=== PATIENT | female | born 1945 | race Caucasian/White ===

== ENCOUNTER 2017-08-20 10:16 | Emergency (ER) | payer MEDICARE, OTHER ==
[2017-08-20] MEDS ORDERED: DIPH,PERTUS(ACELL)TETVAC-LF 0.5 ML VIAL IM ONE (10:59)
--- NOTE | 2017-08-20 12:27 | CT ---
EXAMINATION TYPE: CT brain adalberto hollis DATE OF EXAM: 08/20/2017 COMPARISON: NONE HISTORY: Fall CT DLP: 1671.[address] of the brain was performed. The ventricles, basal cisterns and sulci overlying the cerebral convexities demonstrate mild enlargem ent. There is no evidence for intracranial hemorrhage or sulcal effacement. There is decreased attenuatio n about the periventricular white matter and deep white matter of both cerebral hemispheres, compatib le with chronic small vessel ischemia. No mass effects are seen. If symptoms persist consider MRI. Osseous calvarium is intact. Left frontal temporal scalp hematoma. IMPRESSION: 1. Age related atrophic and chronic small vessel ischemic change without acute intracranial process seen at this time. CT Cervical Spine: Unenhanced CT of the cervical spine was performed with bone and soft tissue window settings submitted . Coronal and sagittal reconstruction is obtained. There is normal alignment and prevertebral soft tissues. No evidence for acute cervical fracture. S cattered degenerative disc disease and spondylosis. Biapical scarring. IMPRESSION: 1. No evidence for acute fracture or subluxation of the cervical spine.
--- NOTE | 2017-08-20 12:31 | CT ---
EXAMINATION TYPE: CT facial bones wo con DATE OF EXAM: 08/20/2017 COMPARISON: NONE HISTORY: Fall CT DLP: 527.[address] of the facial bones was performed in the axial and coronal planes. Bone and soft tissu e window settings are submitted. Left frontal temporal scalp hematoma. I do not see evidence for displaced facial bone fracture or depressed facial bone fracture. The globes are intact. Paranasal sinuses are well-aerated. Mucosal thickening right maxillary sinus mild in degree. IMPRESSION: 1. No evidence for depressed or displaced facial bone fracture.
--- NOTE | 2017-08-20 13:04 | XR ---
EXAMINATION TYPE: XR hand complete RT DATE OF EXAM: 08/20/2017 CLINICAL HISTORY: pain TECHNIQUE: Frontal, lateral and oblique images of the right hand are obtained. COMPARISON: None. FINDINGS: There is no acute fracture/dislocation evident. Degenerative changes first carpometacarpal joint with subchondral cyst formation. The overlying soft tissue appears unremarkable. IMPRESSION: There is no acute fracture or dislocation ICD 10 NO FRACTURE, INITIAL EVALUATION
--- NOTE | 2017-08-20 13:05 | XR ---
EXAMINATION TYPE: XR knee complete LT DATE OF EXAM: 08/20/2017 CLINICAL HISTORY: pain TECHNIQUE: Three views of the left knee are obtained. COMPARISON: None. FINDINGS: There is no acute fracture/dislocation. Total knee arthroplasty changes identified. The ov erlying soft tissue appears unremarkable. IMPRESSION: There is no acute fracture or dislocation ICD 10 NO FRACTURE, INITIAL EVALUATION
--- NOTE | 2017-08-20 13:14 | ED ---
Fall HPI - General Chief Complaint: Fall Stated Complaint: Fall Time Seen by Provider: 08/20/17 10:49 Source: patient Mode of arrival: wheelchair - History of Present Illness Initial Comments: Patient presents with injuries from a fall. She did sustain a head injury. She does not take blood thinners. She has no chest or back pain. She has no belly pain. She has no weakness. She has no nausea or vomiting. She does not want any pain medication. She has no change in vision or hearing. She takes medicine for gout. She has taken her pain medication for that recently. - Related Data Home Medications Medication Instructions Recorded Confirmed Anastrozole [Arimidex] 1 mg PO HS 08/20/17 08/20/17 Cholecalciferol [Vitamin D3] 1,000 unit PO HS 08/20/17 08/20/17 Colchicine [Colchicine] 0.6 mg PO DAILY 08/20/17 08/20/17 Olmesartan/Hydrochlorothiazide 1 tab PO HS 08/20/17 08/20/17 [Olmesartan-Hctz 40-25 mg Tab] RX: Aspirin 81 mg PO HS 08/20/17 08/20/17 RX: Indomethacin [Indocin] 25 mg PO DAILY 08/20/17 08/20/17 RX: Simvastatin [Zocor] 20 mg PO HS 08/20/17 08/20/17 Allergies Allergy/AdvReac Type Severity Reaction Status Date / Time Penicillins Allergy Rash/Hives Verified 08/20/17 10:37 Sulfa (Sulfonamide Allergy Rash/Hives Verified 08/20/17 10:37 Antibiotics) Review of Systems ROS Statement: Those systems with pertinent positive or pertinent negative responses have been documented in the HPI. ROS Other: All systems not noted in ROS Statement are negative. Past Medical History Past Medical History: Cancer, Hyperlipidemia, Hypertension Additional Past Medical History / Comment(s): BREAST CANCER 2017 History of Any Multi-Drug Resistant Organisms: None Reported Additional Past Surgical History / Comment(s): LEFT BREAST SURGERY STAGE 1 CANCER, LUMPECTOMY Past Psychological History: No Psychological Hx Reported Smoking Status: Never smoker Past Alcohol Use History: None Reported Past Drug Use History: None Reported General Exam Limitations: no limitations General appearance: alert, in no apparent distress Head exam: Present: atraumatic, normocephalic, normal inspection Eye exam: Present: normal appearance, PERRL, EOMI. Absent: scleral icterus, conjunctival injection, periorbital swelling ENT exam: Present: normal exam, mucous membranes moist Neck exam: Present: normal inspection. Absent: tenderness, meningismus, lymphadenopathy Respiratory exam: Present: normal lung sounds bilaterally. Absent: respiratory distress, wheezes, rales, rhonchi, stridor Cardiovascular Exam: Present: regular rate, normal rhythm, normal heart sounds. Absent: systolic murmur, diastolic murmur, rubs, gallop, clicks GI/Abdominal exam: Present: soft, normal bowel sounds. Absent: distended, tenderness, guarding, rebound, rigid Extremities exam: Present: normal inspection, full ROM, normal capillary refill. Absent: tenderness, pedal edema, joint swelling, calf tenderness Back exam: Present: normal inspection Neurological exam: Present: alert, oriented X3, CN II-XII intact Psychiatric exam: Present: normal affect, normal mood Skin exam: Present: warm, dry, normal color, other (Patient has an abrasion on the right hand.). Absent: rash Course Vital Signs 08/20/17 10:32 Temperature 98.1 F Pulse Rate 76 Respiratory 16 Rate Blood Pressure 156/70 O2 Sat by Pulse 97 Oximetry Medical Decision Making - Medical Decision Making Patient presents with injuries from a fall. Imaging is negative. I updated her tetanus immunization. She is stable for discharge. Disposition Clinical Impression: Fall Disposition: HOME SELF-CARE Condition: Good Instructions: Fall Prevention for Older Adults (ED) Referrals: Jody Lou MD [Primary Care Provider] - 1-2 days Time of Disposition: 13:13
[2017-08-20 13:24] VITALS: BP 162/77; PULSE 72; RESP 18; TEMP 97.4
== END 2017-08-20 13:23 | disposition home or self-care (01) ==
LOC: EC 10:16
DX: S60.511A Abrasion of right hand, initial encounter (principal); S09.90XA Unspecified injury of head, initial encounter; E78.5 Hyperlipidemia, unspecified; I10 Essential (primary) hypertension; Z23 Encounter for immunization; Z85.3 Personal history of malignant neoplasm of breast; Z79.82 Long term (current) use of aspirin; Z79.899 Other long term (current) drug therapy; Z88.0 Allergy status to penicillin; Z88.2 Allergy status to sulfonamides; W10.9XXA Fall (on) (from) unspecified stairs and steps, initial encounter; Y92.22 Religious institution as the place of occurrence of the external cause
CPT/HCPCS: 70450; 70486; 72125; 90471; 90715; 99284

== ENCOUNTER → 2018-02-26 | Outpatient (CLI) | payer MEDICARE, OTHER ==
--- NOTE | 2018-02-26 08:50 | MM ---
Reason for exam: additional evaluation requested from prior study. Last mammogram was performed 1 year ago. History: Patient is postmenopausal and has history of breast cancer at age 70. Family history of breast cancer in sister at age 55 and breast cancer in sister. Malignant US biopsy breast VAD LT of the left breast, May 06, 2016. Taking estrogen beginning at age 40. Physical Findings: Nurse did not find any significant physical abnormalities on exam. MG 3D Diag Mammo W/Cad MERI Bilateral CC and MLO view(s) were taken. Technologist: Swathi Eldridge RT (R)(M) Prior study comparison: February 17, 2017, bilateral MG 3d diag mammo w/cad [facility]I. May 06, 2016, left breast MG diagnostic mammo LT wo CAD. There are scattered fibroglandular densities. Post surgical changed in the left breast at 12 o'clock. No significant new findings when compared with previous films. These results were verbally communicated with the patient and result sheet given to the patient on 02/26/18. ASSESSMENT: Benign, BI-RAD 2 RECOMMENDATION: Follow-up diagnostic mammogram of both breasts in 1 year.
== END ==
LOC: RADMAMWWP 06:58
PROVIDERS: ATTEND Radiology Diagnostic Radiology
DX: C50.212 Malignant neoplasm of upper-inner quadrant of left female breast (principal)
CPT/HCPCS: 77066; G0279; 77062

== ENCOUNTER → 2019-03-02 | Outpatient (CLI) | payer MEDICARE ==
--- NOTE | 2019-03-02 13:17 | MM ---
Reason for exam: additional evaluation requested from prior study. Last mammogram was performed 1 year ago. History: Patient is postmenopausal and has history of breast cancer at age 70. Family history of breast cancer in sister at age 55 and breast cancer in sister. Malignant US biopsy breast VAD LT of the left breast, May 06, 2016. Taking estrogen beginning at age 40. Physical Findings: Nurse did not find any significant physical abnormalities on exam. MG 3D Diag Mammo W/Cad MERI Bilateral CC and MLO view(s) were taken. Prior study comparison: February 26, 2018, bilateral MG 3d diag mammo w/cad [facility]. February 17, 2017, bilateral MG 3d diag mammo w/cad [facility]I. Post surgical and post therapy changes left breast. Post surgical scar appears more defined on the CC view but similar on the MLO view. A couple punctate calcifications are also new. 6 month follow up recommended. These results were verbally communicated with the patient and result sheet given to the patient on 03/02/19. ASSESSMENT: Probably benign, BI-RAD 3 RECOMMENDATION: Follow-up diagnostic mammogram of the left breast in 6 months.
== END | disposition home or self-care (01) ==
LOC: RADMAMWWP 09:25
PROVIDERS: ATTEND Radiology Diagnostic Radiology
DX: C50.912 Malignant neoplasm of unspecified site of left female breast (principal)
CPT/HCPCS: 77066; G0279; 77062

== ENCOUNTER → 2019-12-02 | Outpatient (CLI) | payer MEDICARE ==
[2019-12-02 16:43] LABS: African American GFR (CKD) 64.3 (60.0-200.0); Albumin 4.2 g/dL (3.80-4.90); Albumin/Globulin Ratio 1.91 (1.60-3.17); Bilirubin, Conjugated 0.2 mg/dL (0.20-0.40); Bilirubin,Unconjugated 0.4 mg/dL; Chol/HDL Ratio 2.69; Globulin 2.2 g/dL (1.6-3.3); Non-African American GFR(CKD) 55.5 (60.0-200.0); Potassium 3.5 mmol/L (3.5-5.5); Total Bilirubin 0.6 mg/dL (0.2-1.2); Total Protein 6.4 g/dL (6.2-8.2)
[2019-12-02 18:07] LABS: Hemoglobin A1C 6.1 % (4.0-6.0)
== END | disposition home or self-care (01) ==
LOC: LABWHC1 07:22
PROVIDERS: ATTEND Internal Medicine
DX: C78.5 Secondary malignant neoplasm of large intestine and rectum (principal); E11.9 Type 2 diabetes mellitus without complications; E78.2 Mixed hyperlipidemia; N28.9 Disorder of kidney and ureter, unspecified
CPT/HCPCS: 36415; 80051; 80061; 80076; 82565; 83036; 84520

== ENCOUNTER → 2020-03-07 | Outpatient (CLI) | payer MEDICARE ==
--- NOTE | 2020-03-07 11:03 | MM ---
Reason for exam: additional evaluation requested from prior study. Last mammogram was performed 1 year ago. History: Patient is postmenopausal and has history of breast cancer at age 70. Family history of breast cancer in sister at age 55 and breast cancer in sister. Malignant US biopsy breast VAD LT of the left breast, May 06, 2016. Taking estrogen beginning at age 40. Physical Findings: Nurse did not find any significant physical abnormalities on exam. MG 3D Diag Mammo W/Cad MERI Bilateral CC and MLO view(s) were taken. Prior study comparison: March 02, 2019, bilateral MG 3d diag mammo w/cad [facility]. February 26, 2018, bilateral MG 3d diag mammo w/cad [facility]I. There are scattered fibroglandular densities. Stable post operative changes in the left breast. No significant new findings when compared with previous films. These results were verbally communicated with the patient and result sheet given to the patient on 03/07/20. ASSESSMENT: Benign, BI-RAD 2 RECOMMENDATION: Follow-up diagnostic mammogram of both breasts in 1 year.
== END | disposition home or self-care (01) ==
LOC: RADMAMWWP 10:10
PROVIDERS: ATTEND Radiology Diagnostic Radiology
DX: C50.212 Malignant neoplasm of upper-inner quadrant of left female breast (principal)
CPT/HCPCS: 77066; G0279; 77062

== ENCOUNTER → 2021-03-23 | Outpatient (CLI) | payer MEDICARE ==
--- NOTE | 2021-03-26 08:31 | MM ---
Reason for exam: additional evaluation requested from prior study. Last mammogram was performed 1 year and 1 month ago. History: Patient is postmenopausal and has history of breast cancer at age 70. Family history of breast cancer in sister at age 55 and breast cancer in sister. Malignant US biopsy breast VAD LT of the left breast, May 06, 2016. Lumpectomy of the left breast, 2016. Radiation therapy of the left breast, 2016. Taking estrogen beginning at age 40. Physical Findings: Nurse did not find any significant physical abnormalities on exam. MG 3D Diag Mammo W/Cad MERI Bilateral CC and MLO view(s) were taken. Prior study comparison: March 07, 2020, bilateral MG 3d diag mammo w/cad [facility]. March 02, 2019, bilateral MG 3d diag mammo w/cad [facility]I. February 26, 2018, bilateral MG 3d diag mammo w/cad [facility]I. There are scattered fibroglandular densities. Post surgical changes left breast. No significant new findings when compared with previous films. These results were verbally communicated with the patient and result sheet given to the patient on 03/23/21. ASSESSMENT: Benign, BI-RAD 2 RECOMMENDATION: Routine screening mammogram of both breasts in 1 year.
== END | disposition home or self-care (01) ==
LOC: RADMAMWWP 15:01
PROVIDERS: ATTEND Radiology Diagnostic Radiology
DX: R92.2 Inconclusive mammogram (principal); Z80.3 Family history of malignant neoplasm of breast
CPT/HCPCS: 77066; G0279; 77062

== ENCOUNTER → 2022-03-25 | Outpatient (CLI) | payer MEDICARE ==
--- NOTE | 2022-03-25 10:52 | MM ---
Reason for Exam: Follow-up at short interval from prior study. Last screening mammogram was performed 12 month(s) ago. Patient History: Menarche at age 10. First Full-Term at age 20. Left ovary removed at age 49. Right ovary removed at age 49. Hysterectomy at age 49. Postmenopausal. Breast cancer, age 70. Currently using Estrogen, starting at age 40. 2016, Lumpectomy on the Left side. 05/06/2016, Malignant Core Biopsy on the left side. 2016, Radiation Therapy on the left side. Sister had breast cancer. Sister had breast cancer, age 55. Prior Study Comparison: 02/17/2017 Bilateral Diagnostic Mammogram, [facility]. 02/26/2018 Bilateral Diagnostic Mammogram, [facility]. 03/02/2019 Bilateral Diagnostic Mammogram, [facility]. 03/07/2020 Bilateral Diagnostic Mammogram, [facility]. 03/23/2021 Bilateral Diagnostic Mammogram, [facility]. Tissue Density: There are scattered fibroglandular densities. Findings: Analyzed By CAD. Redemonstrated postsurgical and posttreatment changes left breast. No change from prior exams. Overall Assessment: Benign, BI-RAD 2 Management: Screening Mammogram of both breasts in 1 year. 1. Patient should continue monthly self breast exams. 2. A clinical breast exam by your physician is recommended on an annual basis. 3. This exam should not preclude additional follow-up of suspicious palpable abnormalities. Results were given to the patient verbally at the time of exam. Electronically signed and approved by: Uriel Gutierrez M.D. Radiologist
== END | disposition home or self-care (01) ==
LOC: RADMAMWWP 10:09
PROVIDERS: ATTEND Radiology Diagnostic Radiology
DX: C50.212 Malignant neoplasm of upper-inner quadrant of left female breast (principal); Z78.0 Asymptomatic menopausal state; Z80.3 Family history of malignant neoplasm of breast
CPT/HCPCS: 77066; G0279; 77062

== ENCOUNTER → 2023-03-24 | Outpatient (CLI) | payer MEDICARE ==
--- NOTE | 2023-03-24 18:37 | CA ---
Transthoracic Echo Report Name: Sally Kasper Age: 77 Gender: F : 1945 Exam Date: 03/24/2023 11:11 Exam Location: [facility] Ht (in): 62 Wt (lb): 220 Ordering Physician: Danni Simmons MD Attending/Referring Phys: Laboratory Development Technician Nata Skaggs [facility] Procedure CPT: Indications: Z82.49 FAMILY HX OF ISCHEM HEART DIS AND OTH DIS O Cardiac Hx: Technical Quality: Fair Contrast 1: Total Dose (mL): Contrast 2: Total Dose (mL): MEASUREMENTS (Male / Female) Normal Values 2D ECHO LV Diastolic Diameter PLAX 3.6 cm 4.2 - 5.9 / 3.9 - 5.3 cm LV Systolic Diameter PLAX 2.3 cm IVS Diastolic Thickness 0.9 cm 0.6 - 1.0 / 0.6 - 0.9 cm LVPW Diastolic Thickness 0.8 cm 0.6 - 1.0 / 0.6 - 0.9 cm LV Relative Wall Thickness 0.5 LVOT Diameter 2.0 cm LA Volume 55.7 cm??? 18 - 58 / 22 - 52 cm??? LA Volume Index 26.0 cm???/m??? 16 - 28 cm???/m??? Ascending Aorta Diameter 3.6 cm M-MODE Aortic Root Diameter MM 2.7 cm LA Systolic Diameter MM 3.8 cm LA Ao Ratio MM 1.4 AV Cusp Separation MM 1.7 cm DOPPLER AV Peak Velocity 178.9 cm/s AV Peak Gradient 12.8 mmHg AV Mean Velocity 119.2 cm/s AV Mean Gradient 6.4 mmHg AV Velocity Time Integral 35.7 cm LVOT Peak Velocity 134.8 cm/s LVOT Peak Gradient 7.3 mmHg LVOT Velocity Time Integral 29.9 cm LVOT Stroke Volume 93.0 cm??? LVOT Stroke Volume Index 46.7 ml/m??? LVOT Cardiac Index 3124.4 cm???/min???m??? AV Area Cont Eq vti 2.6 cm??? AV Area Cont Eq pk 2.3 cm??? MV Area PHT 3.5 cm??? Mitral E Point Velocity 79.3 cm/s Mitral A Point Velocity 97.1 cm/s Mitral E to A Ratio 0.8 MV Deceleration Time 218.6 ms LV E' Lateral Velocity 9.1 cm/s Mitral E to LV E' Lateral Ratio 8.7 LV E' Septal Velocity 8.9 cm/s Mitral E to LV E' Septal Ratio 8.9 Right Atrial Pressure 3.0 mmHg FINDINGS Left Ventricle Left ventricular wall thickness normal. Small left ventricular cavity. Normal left ventricular systolic function with no obvious regional wall motion abnormalities. Left ventricular ejection fraction is estimated at 60-65%. Right Ventricle Right ventricle not well visualized. Right Atrium Right atrium not well visualized. Left Atrium Left atrial size at the upper limits of normal. Mildly increased left atrial volume. Mitral Valve Structurally normal mitral valve. No mitral regurgitation. Aortic Valve Trileaflet aortic valve. No aortic valve stenosis or regurgitation.aortic valve sclerosis. Tricuspid Valve Structurally normal tricuspid valve. No tricuspid regurgitation. Pulmonic Valve Pulmonic valve not well visualized. Pericardium No pericardial effusion. Echo free space anterior to the right ventricle likely represents a fat pad. Aorta Normal size aortic root and normal proximal ascending aorta. CONCLUSIONS 1. Normal left ventricle size and systolic function 2. Aortic sclerosis with no evidence stenosis 3. No pericardial effusion Previewed by: Dr. Danii Kelsey MD (Electronically Signed) Final Date: 24 March 2023 18:36
== END | disposition home or self-care (01) ==
LOC: RADECHMAIN 11:09
PROVIDERS: ATTEND Family Medicine
DX: I70.0 Atherosclerosis of aorta (principal); Z82.49 Family history of ischemic heart disease and other diseases of the circulatory system
CPT/HCPCS: 93306

== ENCOUNTER → 2023-03-26 | Outpatient (CLI) | payer MEDICARE ==
--- NOTE | 2023-03-26 11:05 | MM ---
Reason for Exam: Hx of breast cancer, conservation therapy. Last mammogram was performed 1 year(s) and 1 month(s) ago. Patient History: Menarche at age 10. First Full-Term at age 20. Left ovary removed at age 49. Right ovary removed at age 49. Hysterectomy at age 49. Postmenopausal. Breast cancer, age 70. Previous chest radiation therapy at age 70. Currently using Estrogen, starting at age 40. 2016, Lumpectomy on the Left side. 05/06/2016, Malignant Core Biopsy on the left side. 2016, Radiation Therapy on the left side. Sister had breast cancer. Sister had breast cancer, age 55. Prior Study Comparison: 11/07/1995 Screening Mammogram, Unknown. 02/26/2018 Bilateral Diagnostic Mammogram, [facility]. 03/02/2019 Bilateral Diagnostic Mammogram, [facility]. 03/07/2020 Bilateral Diagnostic Mammogram, [facility] 03/23/2021 Bilateral Diagnostic Mammogram, [facility]. 03/25/2022 Bilateral MG 3D diag mammo w/cad MERI, [facility]. Tissue Density: There are scattered fibroglandular densities. Findings: Analyzed By CAD. Redemonstration of postsurgical and treatment changes of the left breast. No new suspicious mass or group of calcifications within either breast. Overall Assessment: Benign, BI-RAD 2 Management: Screening Mammogram of both breasts in 1 year. A clinical breast exam by your physician is recommended on an annual basis and results should be correlated with mammographic findings. This exam should not preclude additional follow-up of suspicious palpable abnormalities. Results were given to the patient verbally at the time of exam. Electronically signed and approved by: Napoleon Salinas D.O.
== END | disposition home or self-care (01) ==
LOC: RADMAMWWP 10:42
PROVIDERS: ATTEND Radiology Radiation Oncology
DX: C50.212 Malignant neoplasm of upper-inner quadrant of left female breast (principal); R92.323 Mammographic fibroglandular density, bilateral breasts; Z78.0 Asymptomatic menopausal state; Z80.3 Family history of malignant neoplasm of breast
CPT/HCPCS: 77062; 77066

== ENCOUNTER → 2024-03-29 | Outpatient (CLI) | payer MEDICARE ==
--- NOTE | 2024-03-29 19:25 | MM ---
Reason for Exam: Hx of breast cancer, conservation therapy. Last screening mammogram was performed 12 month(s) ago. Patient History: Menarche at age 10. First Full-Term at age 20. Left ovary removed at age 49. Right ovary removed at age 49. Hysterectomy at age 49. Postmenopausal. Breast cancer, left, age 70. Previous chest radiation therapy at age 70. Currently using Estrogen, starting at age 40. 2016, Lumpectomy on the Left side. 05/06/2016, Malignant Core Biopsy on the left side. 2016, Radiation Therapy on the left side. Sister had breast cancer. Sister had breast cancer, age 55. Prior Study Comparison: 05/06/2016 Left Diagnostic Mammogram, [facility]. 02/17/2017 Bilateral Diagnostic Mammogram, [facility]. 02/26/2018 Bilateral Diagnostic Mammogram, [facility] 03/02/2019 Bilateral Diagnostic Mammogram, [facility]. 03/07/2020 Bilateral Diagnostic Mammogram, [facility]. 03/23/2021 Bilateral Diagnostic Mammogram, [facility]. 03/25/2022 Bilateral MG 3D diag mammo w/cad [facility], [facility]. 03/26/2023 Bilateral MG 3D diag mammo w/cad [facility], [facility]. Tissue Density: There are scattered areas of fibroglandular density. Findings: Analyzed By CAD. The pattern is symmetrical. Surgical clips are within the left breast. No significant interval changes. No suspicious groups of microcalcifications, spiculated or lobular masses, architectural distortion or other secondary signs of malignancy are mammographically apparent. Overall Assessment: Benign, BI-RAD 2 Management: Screening Mammogram of both breasts in 1 year. A negative mammogram report should not preclude additional follow up of suspicious palpable abnormalities. Patient should continue monthly self breast exam. A clinical breast exam by your physician is recommended on an annual basis and results should be correlated with mammographic findings. Note on Sissy scores and lifetime risk: 1. A Sissy score greater than 3% is considered moderate risk. If this is the case, consider specialist referral to assess eligibility for a risk reducing agent. 2. If overall lifetime risk for the development of breast cancer is 20% or higher, the patient may qualify for future screening with alternating mammogram and breast MRI. [facility], , 03/29/2024 7:22 PM. Electronically signed and approved by: Luis Anguiano D.O. Radiologis
== END | disposition home or self-care (01) ==
LOC: RADMAMWWP 10:50
PROVIDERS: ATTEND Radiology Radiation Oncology
DX: Z12.31 Encounter for screening mammogram for malignant neoplasm of breast (principal); Z78.0 Asymptomatic menopausal state; Z80.3 Family history of malignant neoplasm of breast; Z90.722 Acquired absence of ovaries, bilateral; R92.323 Mammographic fibroglandular density, bilateral breasts
CPT/HCPCS: 77063; 77067